=== PATIENT | male | born 1975 | race Caucasian/White ===

== ENCOUNTER 2025-05-01 14:38 | Emergency (ER) | payer MEDICAID ==
[~2025-05-01] VITALS: Ht 182.9 cm; Wt 104.3 kg
[2025-05-01 14:44] VITALS: BP 126/70; O2SAT 97
== END 2025-05-01 17:10 | disposition left against medical advice (07) ==
LOC: ER 14:38
DX: R50.9 Fever, unspecified (principal); Z53.21 Procedure and treatment not carried out due to patient leaving prior to being seen by health care provider
CPT/HCPCS: A4606; A4663